=== PATIENT | female | born 1940 | race Caucasian/White ===

== ENCOUNTER → 2024-05-08 11:16 | Outpatient (REF) | payer OTHER, SELFPAY ==
[2024-05-08 12:36] LABS: Free T3 2.26 pg/ml (2.77-5.27)
[2024-05-08 12:50] LABS: TSH 3.39 uIU/ml (0.47-4.68)
== END ==
LOC: OLABP 11:16
PROVIDERS: ATTENDING PHYSICIAN Family Medicine
DX: J20.9 Acute bronchitis, unspecified (principal); N18.4 Chronic kidney disease, stage 4 (severe); I13.0 Hypertensive heart and chronic kidney disease with heart failure and stage 1 through stage 4 chronic kidney disease, or unspecified chronic kidney disease; G35 Multiple sclerosis; J44.9 Chronic obstructive pulmonary disease, unspecified; I48.19 Other persistent atrial fibrillation; I51.7 Cardiomegaly; J45.901 Unspecified asthma with (acute) exacerbation
CPT/HCPCS: 36415; 84443; 84481